=== PATIENT | female | born 1940 | race Caucasian/White ===

== ENCOUNTER 2017-05-13 19:04 | Emergency (ER) | payer MEDICARE, OTHER ==
[2017-05-13] MEDS ORDERED: GLUCAGON,HUMAN RECOMBINANT 1 MG/ML VIAL ONE (19:21)
[2017-05-13] MEDS: GLUCAGON,HUMAN RECOMBINANT 1 MG/ML VIAL IVP ONE (19:25)
--- NOTE | 2017-05-13 19:33 | ED Physician Documentation ---
General Adult - HISTORIAN Historian: patient - HPI Chief Complaint: General Adult Onset: minutes (30) Timing: still present Further Comments: yes (Patient has had a esophagela web removed. Marce bridges eating a hot dog feels that she got it caught in the esphagus.) - ROS CONST: no problems - PAST HX Past History: other (GERDs, ) Surgeries/Procedures: other (esophageal web removed) Allergies/Adverse Reactions: Allergies Allergy/AdvReac Type Severity Reaction Status Date / Time No Known Allergies Allergy Unverified 05/13/17 19:19 Home Medications: Ambulatory Orders Medication Instructions Recorded Omeprazole [Omeprazole] 20 mg PO DAILY 05/13/17 - SOCIAL HX Smoking History: non-smoker Alcohol Use: none Drug Use: none - FAMILY HX Family History: Yes - VITAL SIGNS Vital Signs: Vital Signs Temp Pulse Resp BP Pulse Ox 112/72 10/16/13 09:27 - REVIEWED ASSESSMENTS Nursing Assessment Reviewed: Yes Vitals Reviewed: Yes Progress - Results/Orders Results/Orders: post glucogon FB seems to pass through. Patient was able to swallow water OK. ED Results Lab/Radiology - Radiology Radiology Impressions: Chest x-ray : normal General Adult Physical Exam - PHYSICAL EXAM GENERAL APPEARANCE: moderate distress EENT: ENT inspection normal, pharynx normal, no signs of dehydration NECK: normal inspection, thyroid normal, supple. No: lymphadenopathy RESPIRATORY: no resp distress, chest non-tender, breath sounds normal. No: wheezes, rales, rhonchi CVS: reg rate & rhythm, heart sounds normal, equal pulses, no murmur, no gallop ABDOMEN: soft, no organomegaly, normal bowel sounds, no abdominal bruit SKIN: warm/dry NEURO: oriented X3 Discharge Clincal Impression: Esophageal foreign body Referrals: Klaus Figueroa MD [Primary Care Provider] - 2 Days Additional Instructions: Avoid eating any solid foods for about 12 hours. May drink as much as you want to. Make sure you chew your food well. I will schedule an appointment for endoscopy. Home Medications: Ambulatory Orders Omeprazole [Omeprazole] 20 mg PO DAILY 05/13/17 Condition: Stable Disposition: 01 HOME, SELF-CARE Decision to Admit: NO Date of Decison to Admit: 05/13/17 Decision Time: 19:54
--- NOTE | 2017-05-13 20:04 | Diagnostic Imaging Report ---
NANCY BLAKE [facility] [address] [facility] [id number] Report Submission Date: May 13, 2017 7:58:17 PM CDT Patient Study Name: MAKENNA MEHTA Date: May 13, 2017 7:38:09 PM CDT Modality Type: CR Gender: F Description: CHEST : 42 Institution: [facility] Physician: NANCY BLAKE Chest - two views Clinical history: Foreign body sensation in the mid esophagus. Findings: Examination of the chest in PA and lateral views with no prior films for comparison demonstrates lungs to be hyperinflated but clear. There is minimal apical pleural thickening. The aorta is atherosclerotic. Bony thorax appears intact. Impression: 1. Hyperinflation. 2. Aortic atherosclerosis. Electronically signed on May 13, 2017 7:58:17 PM CDT by: Surendra MCNEIL
[2017-05-13 20:19] VITALS: BP 133/53
== END 2017-05-13 20:15 | disposition home or self-care (01) ==
LOC: ED 19:04
DX: T18.108A Unspecified foreign body in esophagus causing other injury, initial encounter (principal); X58.XXXA Exposure to other specified factors, initial encounter; Y93.9 Activity, unspecified; Y99.9 Unspecified external cause status
CPT/HCPCS: 71020; J1610; 99283; S1016

== ENCOUNTER 2017-05-22 07:26 | Day surgery (SDC) | payer MEDICARE, OTHER ==
[2017-05-22] MEDS ORDERED: PROPOFOL 200 MG/20 ML VIAL IV ONE (08:00)
[2017-05-22] MEDS ORDERED: SALINE FLUSH 10 ML DISP.SYRIN IVF ONE (08:00)
[2017-05-22] MEDS ORDERED: LACTATED RINGERS 1,000 ML IV.SOLN IV ONE (08:00)
[2017-05-22] MEDS ORDERED: LIDOCAINE HCL/PF 2% 100 MG/5 ML VIAL IJ ONE (08:00)
--- NOTE | 2017-05-23 09:15 | GI Report ---
REFERRING PHYSICIAN: Dr. Klaus Figueroa SERVER CASHIER: Vitor Lomas MD PROCEDURE MEDICATION: Propofol as per anesthesia. INDICATIONS: This 77-year-old woman was in the emergency room last week with a food bolus. It did seem to pass with glucagon. She was eating some cold watermelon. She had an esophageal dilatation she thinks 5 years ago and seemed to have something in the proximal esophagus. I am not sure if it was a web or a stricture. She did well though until this episode. She has been careful over the last week until coming in today. She sometimes has increasing heartburn. She does have her bed elevated. She is on omeprazole. PROCEDURE PERFORMED: Endoscopy with esophageal dilatation. PROCEDURE: An Olympus video endoscope was passed through the esophagus under direct visualization. Patient seems to have decreased motility in the esophagus. There is a slight ring at the GE junction. Cardia of the stomach shows no mass or lesion. Fundus, body, and antrum with mild gastritis. Duodenal bulb, first and second part of the duodenum exam was normal. A guidewire was placed in the stomach. The endoscope was removed and up to a 48 Savary, which is 16 mm Savary -Raquel dilator passed over the guidewire without difficulty. The endoscope was re-introduced. There was some bleeding in the cricopharyngeus where the stricture was stretched. The patient tolerated the procedure well. FINDINGS: 1. 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 2. 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 RECOMMENDATIONS: 1. Be on just full liquids today. 2. Would take a PPI twice a day for at least maybe 10 days before breakfast and supper and then daily. 3. Would also take an antacid at bedtime. 4. Avoid cold liquids with meals and pills. 5. If her symptoms do not improve, a video swallow or esophageal motility study would be the next consideration. cc: Dr. lKaus MCNEIL
== END 2017-05-22 07:27 ==
LOC: OPSURG 07:26
PROVIDERS: ATTEND Internal Medicine Gastroenterology
DX: K22.2 Esophageal obstruction (principal); R13.10 Dysphagia, unspecified
CPT/HCPCS: J2001; J2704; J7120; 43248; S1016

== ENCOUNTER 2017-10-27 08:15 | Outpatient (CLI) | payer MEDICARE, OTHER ==
[2017-10-27 09:04] LABS: eGFR (African) > 60; eGFR (Non-African) > 60
== END 2017-10-27 08:20 ==
LOC: LAB 08:15
PROVIDERS: ATTEND Physician Assistant
DX: I10 Essential (primary) hypertension (principal); Z13.6 Encounter for screening for cardiovascular disorders
CPT/HCPCS: 36415; 80053; 80061

== ENCOUNTER 2018-05-25 14:11 | Outpatient (CLI) | payer MEDICARE, OTHER ==
[2018-05-25 14:40] LABS: BASOPHILS % 0.6 (0.0-1.5); EOSINOPHILS % 1.8 % (0.0-6.8); MEAN CORPUSCULAR HEMOGLOBIN 29.2 pg (28.0-34.0); MEAN CORPUSCULAR VOLUME 90.2 fl (80.0-100.0); MONOCYTES % 4.5 % (0.0-11.0); NEUTROPHILS # 3.5 # k/uL (1.4-7.7)
[2018-05-25 15:00] LABS: eGFR (African) > 60; eGFR (Non-African) 42
== END 2018-05-25 14:30 ==
LOC: LAB 14:11
PROVIDERS: ATTEND Family Medicine
DX: R55 Syncope and collapse (principal); R73.9 Hyperglycemia, unspecified; R07.89 Other chest pain
CPT/HCPCS: 36415; 80053; 83036; 84484; 85025

== ENCOUNTER 2018-06-07 10:13 | Outpatient (CLI) | payer MEDICARE, OTHER ==
[2018-06-07 10:52] LABS: eGFR (African) > 60; eGFR (Non-African) > 60
== END 2018-06-07 10:14 ==
LOC: LAB 10:13
PROVIDERS: ATTEND Family Medicine
DX: I10 Essential (primary) hypertension (principal)
CPT/HCPCS: 36415; 80048

== ENCOUNTER 2019-11-01 08:34 | Outpatient (CLI) | payer MEDICARE, OTHER ==
[2019-11-01 09:30] LABS: eGFR (Non-African) > 60
[2019-11-01 09:39] LABS: HDL 120 mg/dL (>40)
[2019-11-04 08:33] LABS: A1C 5.5 % (<5.7)
== END 2019-11-01 08:39 ==
LOC: LAB 08:34
PROVIDERS: ATTEND Family Medicine
DX: R73.9 Hyperglycemia, unspecified (principal)
CPT/HCPCS: 36415; 80053; 80061; 83036